=== PATIENT | male | born 1955 | race Caucasian/White ===

== ENCOUNTER 2016-06-28 03:25 | Emergency (ER) | payer BC ==
[~2016-06-28] VITALS: Ht 182.9 cm; Wt 78.5 kg
[~2016-06-28 03:25] MED LIST: ACET325T33 PO; ASPI-664 PO; DOLU50TA PO; ERTA1VIA2 IV; FLO1 PO; LANT3I SC; LISI-525 PO; NOVO3I SC; NPH,100V SC; RALT400T4 PO; RILP25TA PO; SITA50TA2 PO; VANC1VIA2 IVPB; [UNRECOGNIZED DRUG - CODE] PO
[2016-06-28 03:43] VITALS: Ht 182.9 cm; Wt 78.5 kg
[2016-06-28] MEDS ORDERED: HYDROmorphONE 1 MG/ML SYG IV STA (03:58)
[2016-06-28] MEDS ORDERED: ONDANSETRON 4 MG INJ IV STA (03:58)
--- NOTE | 2016-06-28 04:31 | RADRPT ---
PROCEDURE: CT of the abdomen and pelvis without contrast CLINICAL INDICATION: left flank pain. TECHNIQUE: Spiral CT images through the abdomen and pelvis without the use of contrast. The study is tailored for evaluation of renal and ureteral calculi and is otherwise somewhat limited for eval uation of the abdomen and pelvis. The administered radiation dose is CTDI 10.28, DLP 681.21. One or more of the following dose reduction techniques were used: automated exposure control, adjustment o f the mA and/or kV according to patient size, or use of iterative reconstruction technique. COMPARISON: None FINDINGS: There is a small patchy alveolar opacity in the right lower lobe filling of the adjacent bronchus. This may represent a small area of infectious infiltrate. The left lung is clear. No pleural or p ericardial effusion is seen.. Atherosclerotic change of the aorta and branches is seen. The liver, spleen, adrenals, and pancreas are unremarkable in appearance. No stones are seen in the kidneys, ureters, or bladder. No hydronephrosis or perinephric stranding. No biliary or pancreatic ductal dilatation is seen. There is stranding of the subcutaneous fat of the anterior abdominal wa ll which may be due to cellulitis. Skin thickening of the anterior abdominal wall is seen. The mayur dy is limited by lack of contrast but no gross bowel obstruction, free air, or abscess is seen. No adenopathy or ascites is seen. Degenerative change lumbar spine is seen with disk bulge and facet an d ligamentous hypertrophic changes contributing to probable spinal stenosis at L3-4 and L4-5.. Ther e is a small fat-containing left inguinal hernia. The bladder and prostate are unremarkable in appe arance. The appendix is not identified but no pericecal inflammatory change is seen. There is no e vidence for diverticulitis. Moderate colonic stool burden. IMPRESSION: No evidence for renal stones or hydronephrosis.. Stranding of the subcutaneous fat of the anterior abdominal wall with nodular thickening of the skin. Question cellulitis. RPTAT: [facility] Physician Liz Date Time Electronically viewed and signed by Jennie Melo Physician on 06/28/2016 04:31 LE/
[2016-06-28 05:17] LABS: BASOPHILS % 0.4 % (0.0-2.0); EOSINOPHILS # 0.1 10^3/ul (0.0-0.5); EOSINOPHILS % 1.6 % (0.0-7.0); HEMATOCRIT 32.5 % (42.0-52.0); HEMOGLOBIN 10.8 g/dl (14.0-18.0); LYMPHOCYTES # 2.3 10^3/ul (0.8-2.9); MEAN CORPUSCULAR HEMOGLOBIN 31.6 pg (29.0-33.0); MEAN CORPUSCULAR HGB CONC 33.3 g/dl (32.0-37.0); MEAN PLATELET VOLUME 8.8 fl (7.4-10.4); MONOCYTE # 0.7 10^3/ul (0.3-0.9); NEUTROPHIL # 4.8 10^3/ul (1.6-7.5); PLATELET COUNT 229 10^3/UL (140-440); RED BLOOD COUNT 3.42 10^6/ul (4.70-6.10); RED CELL DISTRIBUTION WIDTH 13.3 % (11.5-14.5)
[2016-06-28 05:21] LABS: POTASSIUM 5.3 mmol/L (3.5-5.1)
[2016-06-28 05:22] LABS: CONDITION 1
[2016-06-28 05:24] LABS: CREATININE 1.36 mg/dl (0.61-1.24)
[2016-06-28 05:25] LABS: CALCIUM 9.6 mg/dl (8.4-10.2)
[2016-06-28] MEDS ORDERED: METH-70 PO (05:37)
[2016-06-28] MEDS ORDERED: HYDR-902 PO (05:37)
--- NOTE | 2016-06-28 05:43 | ERD ---
ER Documentation Chief Complaint Date/Time DATE: 06/28/16 TIME: 05:39 Chief Complaint left flank pain. Hx of kidney stone HPI This is a 61-year-old male complains of pain in his left back described as sharp for the past 2 days is constant. It is worse with movement better with rest. Patient has a history of kidney stones but says this pain is not like his prior kidney stones. No hematuria dysuria no vomiting diarrhea no chest pain shortness of breath. The pain does radiate down the left back to the bottom of the left buttocks. Nothing down the leg. No loss of bowel or bladder no saddle anesthesia ROS All systems reviewed and are negative except as per history of present illness. Medications Home Meds Active Scripts Methocarbamol* (Robaxin*) 750 Mg Tablet, 750 MG PO TID, #30 TAB Prov:KAEL BRYAN DO 06/28/16 Hydrocodone/Acetaminophen ([place] 10-325 Tablet) 1 Each Tablet, 1 TAB PO Q6H Y for PAIN, #20 TAB Prov:KAEL BRYAN DO 06/28/16 Fludrocortisone* (Florinef*) 0.1 Mg Tab, 0.05 MG PO DAILY for 30 Days, TAB Prov:ABHI GARCIA MD 12/28/15 Vancomycin Hcl (Vancomycin Hcl) 1 Gm/250 Ml Iv.soln., 1 GM IVPB Q12H for 42 Days , EA 0 Refills Prov:CAT OSMAN MD 10/12/15 Ertapenem Sodium (Invanz) 1 G/Vial Vial.port, 1 G IV DAILY for 42 Days, 0 Refills Prov:CAT OSMAN MD 10/12/15 Sitagliptin* (Januvia*) 50 Mg Tablet, 50 MG PO DAILY for 30 Days, TAB 3 Refills Prov:CAT OSMAN MD 10/12/15 Nph, Human Insulin Isophane (Humulin N) 100 Units/Ml Vial, 12 UNIT SC HS for 30 Days, VIAL 3 Refills Prov:CAT OSMAN MD 10/12/15 Insulin Glargine* (Lantus*) 100 Unit/Ml Soln, 32 UNIT SC HS for 30 Days, BOX 3 Refills Prov:CAT OSMAN MD 10/12/15 Insulin Aspart* (Novolog Insulin Pen*) 100 Unit/Ml Soln, 16 UNIT SC WITH MEALS for 30 Days, BOX 3 Refills Prov:CAT OSMAN MD 10/12/15 Acetaminophen* (Tylenol*) 325 Mg Tablet, 650 MG PO Q6H Y for PAIN LEVEL 1-3 OR FEVER for 30 Days, TAB 5 Refills Prov:CAT OSMAN MD 10/12/15 Lisinopril* (Zestril*) 20 Mg Tab, 20 MG PO DAILY, #30 TAB 5 Refills Prov:CAT OSMAN MD 05/03/15 Nph, Human Insulin Isophane (Humulin N) 100 Unit/Ml Solution, 10 UNIT SC HS, #1 VIAL 5 Refills Prov:CAT OSMAN MD 05/03/15 Aspirin* (Aspirin* EC) 81 Mg Tabec, 81 MG PO DAILY, #30 BOTTLE 3 Refills Prov:MICHAEL QUINTEROS MD 08/20/14 Reported Medications Rilpivirine Hcl (EDURANT) 25 Mg Tablet, 25 MG PO QHS, TAB 10/03/15 Raltegravir Potassium* (Isentress*) 400 Mg Tablet, 400 MG PO BID, TAB 10/03/15 Dolutegravir Sodium (Tivicay) 50 Mg Tablet, 50 MG PO QHS, TAB 10/03/15 Lamivudine* (Lamivudine*) 300 Mg Tablet, 300 MG PO DAILY, TAB 10/03/15 Allergies Allergies: Coded Allergies: No Known Allergies (Verified Allergy, Unknown, 10/11/15) PMhx/Soc History of Surgery: Yes (L big toe amputation; EX LAP; partial prostatectomy) Anesthesia Reaction: No Hx Neurological Disorder: No Hx Respiratory Disorders: Yes (BRONCHITIS) Hx Cardiac Disorders: No (HTN) Hx Psychiatric Problems: Yes (DEPRESSION) Hx Miscellaneous Medical Probl: Yes (HIV+, kidney stones) Hx Alcohol Use: No Hx Substance Use: No Hx Tobacco Use: No Smoking Status: Never smoker FmHx Family History: No coronary disease Physical Exam Vitals Vital Signs Date Time Temp Pulse Resp B/P Pulse Ox O2 Delivery O2 Flow Rate FiO2 06/28/16 03:43 96.7 77 20 147/67 100 Physical Exam Const: Well-developed, well-nourished Head: Atraumatic, normocephalic Eyes: Normal Conjunctiva, PERRLA, EOMI, normal sclera, no nystagmus ENT: Normal External Ears, Nose and Mouth, moist mucus membranes. Neck: Full range of motion. No meningismus, no lymphadenopathy. Resp: Clear to auscultation bilaterally, no wheezing, rhonchi, rales Cardio: Regular rate and rhythm, no murmurs, S1 S2 present Abd: Soft, non tender x 4, non distended. Normal bowel sounds, no guarding or rebound, no pulsitile abdominal masses or bruits Skin: No petechiae or rashes, no ecchymosis , no maculopapular rash Back: Left back tenderness with muscle spasm, pain is reproducible to palpation Ext: No cyanosis, or edema, FROM x 4, normal inspection, neurovascularly intact x 4 Neur: Awake and alert, STR 5/5 x 4, sensation intact x 4, no focal findings, cerebellum intact Psych: Normal Mood and Affect Result Diagram: 06/28/1640906/28/160 Results 24 hrs Laboratory Tests Test 06/28/16 04:10 Anion Gap 18 Basophils # 0.010^3/ul Basophils % 0.4% Blood Urea Nitrogen 31mg/dl Calcium Level 9.6mg/dl Carbon Dioxide Level 24mmol/L Chloride Level 106mmol/L Creatinine 1.36mg/dl Eosinophils # 0.110^3/ul Eosinophils % 1.6% Glucose Level 71mg/dl Hematocrit 32.5% Hemoglobin 10.8g/dl Lymphocytes # 2.310^3/ul Lymphocytes % 29.0% Mean Corpuscular Hemoglobin 31.6pg Mean Corpuscular Hemoglobin Concent 33.3g/dl Mean Corpuscular Volume 95.0fl Mean Platelet Volume 8.8fl Monocytes # 0.710^3/ul Monocytes % 9.0% Neutrophils # 4.810^3/ul Neutrophils % 60.0% Nucleated Red Blood Cells # 0.010^3/ul Nucleated Red Blood Cells % 0.0/100WBC Platelet Count 84711^3/UL Potassium Level 5.3mmol/L Red Blood Count 3.4210^6/ul Red Cell Distribution Width 13.3% Sodium Level 143mmol/L White Blood Count 8.010^3/ul Current Medications Medications (Trade) Dose Ordered Sig/[place] Route PRN Reason Start Time Stop Time Status Last Admin Dose Admin Hydromorphone HCl (Dilaudid) 1 mg ONCE STAT IV 06/28/16 03:58 06/28/16 03:59 DC 06/28/16 04:06 Ondansetron HCl (Zofran Inj) 4 mg ONCE STAT IV 06/28/16 03:58 06/28/16 03:59 DC 06/28/16 04:07 Procedures/MDM PROCEDURE: CT of the abdomen and pelvis without contrast CLINICAL INDICATION: left flank pain. TECHNIQUE: Spiral CT images through the abdomen and pelvis without the use of contrast. The study is tailored for evaluation of renal and ureteral calculi and is otherwise somewhat limited for evaluation of the abdomen and pelvis. The administered radiation dose is CTDI 10.28, DLP 681.21. One or more of the following dose reduction techniques were used: automated exposure control, adjustment of the mA and/or kV according to patient size, or use of iterative reconstruction technique. COMPARISON: None FINDINGS: There is a small patchy alveolar opacity in the right lower lobe filling of the adjacent bronchus. This may represent a small area of infectious infiltrate. The left lung is clear. No pleural or pericardial effusion is seen.. Atherosclerotic change of the aorta and branches is seen. The liver, spleen, adrenals, and pancreas are unremarkable in appearance. No stones are seen in the kidneys, ureters, or bladder. No hydronephrosis or perinephric stranding. No biliary or pancreatic ductal dilatation is seen. There is stranding of the subcutaneous fat of the anterior abdominal wall which may be due to cellulitis. Skin thickening of the anterior abdominal wall is seen. The study is limited by lack of contrast but no gross bowel obstruction, free air, or abscess is seen. No adenopathy or ascites is seen. Degenerative change lumbar spine is seen with disk bulge and facet and ligamentous hypertrophic changes contributing to probable spinal stenosis at L3-4 and L4- 5.. There is a small fat-containing left inguinal hernia. The bladder and prostate are unremarkable in appearance. The appendix is not identified but no pericecal inflammatory change is seen. There is no evidence for diverticulitis. Moderate colonic stool burden. IMPRESSION: No evidence for renal stones or hydronephrosis.. Stranding of the subcutaneous fat of the anterior abdominal wall with nodular thickening of the skin. Question cellulitis. RPTAT: [facility] Jennie Melo, Physician Date Time Electronically viewed and signed by Jennie Melo Physician on 06/28/2016 04 :31 LE/ CC: KAEL BRYAN DO No evidence of kidney stone. The abdominal wall is also normal there is no evidence of cellulitis as per the CT scan Patient has tenderness in the back this is likely musculoskeletal in origin. This pain is reproducible with movement and with palpation Departure Diagnosis: Primary Impression: Back pain Back pain location: low back pain Chronicity: acute Back pain laterality: left Sciatica presence: with sciatica Sciatica laterality: sciatica of left side Qualified Code: M54.42 - Acute left-sided low back pain with left-sided sciatica Additional Impression: Muscle spasm Condition: Stable Patient Instructions: Relieving Back Pain, Self-Care for Low Back Pain KAEL BRYAN DO Jun 28, 2016 05:43
[2016-06-28 05:45] VITALS: BP 131/67; PULSE 74; RESP 19; TEMP 98.9
== END 2016-06-28 05:50 | disposition home or self-care (01) ==
LOC: E/R 03:25
DX: M54.42 Lumbago with sciatica, left side (principal); M62.830 Muscle spasm of back; I10 Essential (primary) hypertension; E11.9 Type 2 diabetes mellitus without complications; Z79.4 Long term (current) use of insulin; Z79.82 Long term (current) use of aspirin; Z79.84 Long term (current) use of oral hypoglycemic drugs
CPT/HCPCS: 36415; 74176; 80048; 85025; 96374; 96375; 99285; J1170; J2405